=== PATIENT | male | born 1995 | race American Indian/Alaskan Native ===

== ENCOUNTER 2020-06-18 15:30 | Emergency (ER) | payer SELFPAY ==
[2020-06-18 16:45] VITALS: BP 122/72
[2020-06-18] MEDS ORDERED: ACETAMINOPHEN 325 MG TAB PO ONE (16:45)
[2020-06-18] MEDS ORDERED: IBUPROFEN 600 MG TAB PO ONE (16:45)
[2020-06-18] MEDS ORDERED: LIDOCAINE (4%) 40 MG/ML TOPICAL SOLN 50 ML BOTTLE TP ONE (16:52)
--- NOTE | 2020-06-18 17:12 | Event Note ---
ED Screening Note Date of service: 06/18/20 Time: 17:11 ED Screening Note: Patient complains of throat pain x4 days Right peritonsillar abscess noted on exam No trismus or drooling noted Fever 102.4, Tylenol given This initial assessment/diagnostic orders/clinical plan/treatment(s) is/are subj ect to change based on patients health status, clinical progression and re- assessment by fellow clinical providers in the ED. Further treatment and workup at subsequent clinical providers discretion. Patient/guardian urged not to elope from the ED as their condition may be serious if not clinically assessed and managed. Initial orders include: Tylenol Room needed for needle aspiration
== END 2020-06-18 21:30 | disposition left against medical advice (07) ==
LOC: ED 15:30
DX: J02.9 Acute pharyngitis, unspecified (principal); Z53.21 Procedure and treatment not carried out due to patient leaving prior to being seen by health care provider